=== PATIENT | female | born 1985 | race Caucasian/White ===

== ENCOUNTER 2017-05-29 08:21 | Emergency (ER) | payer MEDICAID | END 2017-05-29 09:49 | disposition home or self-care (01) | LOC: FTE 08:21 | DX: G51.0 Bell's palsy (principal) | CPT/HCPCS: 99284 ==

== ENCOUNTER 2018-08-27 19:48 | Inpatient (IN) | payer MEDICAID ==
[2018-08-27 21:40] LABS: ADD UMIC NO; UR ASCORBIC ACID NEGATIVE (NEGATIVE); UR BACTERIA FEW /HPF (NONE SEEN); UR BILIRUBIN (Dip) NEGATIVE (NEGATIVE); UR BLOOD (Dip) NEGATIVE (NEGATIVE); UR CALCIUM OXALATE CRYSTAL MANY /HPF (NONE SEEN); UR CLARITY SLIGHTLY CLOUDY (CLEAR); UR COLOR YELLOW (YELLOW); UR GLUCOSE (Dip) NEGATIVE (NEGATIVE); UR KETONES (Dip) NEGATIVE (NEGATIVE); UR LEUKOCYTE ESTERASE (Dip) NEGATIVE Leu/ul (NEGATIVE); UR MUCUS FEW /HPF (NONE SEEN); UR NITRITE (Dip) NEGATIVE (NEGATIVE); UR RBC 1 /HPF (0-5); UR SPECIFIC GRAVITY (Dip) 1.018 (1.003-1.030); UR SQUAMOUS EPITHELIAL CELL FEW /HPF (FEW); UR TOTAL PROTEIN (Dip) NEGATIVE (NEGATIVE); UR UROBILINOGEN (Dip) NEGATIVE (NEGATIVE); UR WBC 1 /HPF (0-5)
[2018-08-28] MEDS ORDERED: LIDOCAINE 1% (MPF) 30 ML INJ INJ
[2018-08-28] MEDS ORDERED: BUTORPHANOL 2 MG INJ IV
[2018-08-28] MEDS ORDERED: MINERAL OIL LIGHT 10 ML VIAL TOP
[2018-08-28 00:34] LABS: ADD MAN DIFF? NO
[2018-08-28] MEDS: LACTATED RINGER'S 1,000 ML IV ×2 (00:37→07:51)
[2018-08-28 00:43] LABS: BASOPHILS % 0.5 % (0.0-2.0); EOSINOPHILS # 0.1 10^3/ul (0.0-0.5); EOSINOPHILS % 0.6 % (0.0-7.0); HEMATOCRIT 43.3 % (37.0-47.0); HEMOGLOBIN 14.1 g/dl (12.0-16.0); LYMPHOCYTES # 3.2 10^3/ul (0.8-2.9); MEAN CORPUSCULAR HEMOGLOBIN 27.8 pg (29.0-33.0); MEAN CORPUSCULAR HGB CONC 32.6 g/dl (32.0-37.0); MEAN CORPUSCULAR VOLUME 85.4 fl (82.0-101.0); MONOCYTE # 0.6 10^3/ul (0.3-0.9); MONOCYTES % 7.5 % (0.0-11.0); NEUTROPHILS % 50.8 % (39.0-77.0); PLATELET COUNT 234 10^3/UL (140-415); RED BLOOD COUNT 5.07 10^6/ul (4.20-5.40); RED CELL DISTRIBUTION WIDTH 14.4 % (11.5-14.5)
[2018-08-28 00:43] LABS: WHITE BLOOD COUNT 7.9 10^3/ul (4.8-10.8)
[2018-08-28 00:58] LABS: GLUCOSE 91 mg/dl (70-220)
[2018-08-28 00:59] LABS: ALANINE AMINOTRANSFERASE 16 IU/L (13-69); ALBUMIN 3.4 g/dl (3.3-4.9); ALBUMIN/GLOBULIN RATIO 1.06; ALKALINE PHOSPHATASE 162 IU/L (42-121); ANION GAP 9 (5-13); ASPARTATE AMINO TRANSFERASE 19 IU/L (15-46); BILIRUBIN,INDIRECT 0.2 mg/dl (0-1.1); BILIRUBIN,TOTAL 0.2 mg/dl (0.2-1.3); BLOOD UREA NITROGEN 16 mg/dl (7-20); CALCIUM 9.3 mg/dl (8.4-10.2); CARBON DIOXIDE 21 mmol/L (21-31); CHLORIDE 106 mmol/L (97-110); CREATININE 0.49 mg/dl (0.44-1.00); Estimated GFR > 60 mL/min (>60); GLUCOSE 95 mg/dl (70-220); SODIUM 136 mmol/L (135-144); TOTAL PROTEIN 6.6 g/dl (6.1-8.1)
[2018-08-28 01:00] LABS: INR 0.96; PROTIME 12.9 Sec (11.9-14.9)
[2018-08-28 01:01] LABS: PARTIAL THROMBOPLASTIN TIME 26.3 Sec (23.0-35.0)
[2018-08-28 01:30] LABS: HEPATITIS B SURFACE ANTIGEN NEGATIVE (NEGATIVE)
[2018-08-28] MEDS: OXYTOCIN 30 UNITS/LR 500 ML IV ×4 (03:09→18:36)
[2018-08-28] MEDS ORDERED: LACTATED RINGER'S 1,000 ML IV* (12:28)
[2018-08-28] MEDS ORDERED: CARBOPROST 250 MCG INJ IM ×3 (12:30→19:00)
[2018-08-28] MEDS ORDERED: ONDANSETRON 4 MG INJ IV (12:30)
[2018-08-28] MEDS ORDERED: MAGNESIUM HYDROXIDE 30ML CUP PO (12:30)
[2018-08-28] MEDS ORDERED: MISOPROSTOL 200 MCG TAB PR ×3 (12:30→19:00)
[2018-08-28] MEDS ORDERED: DIBUCAINE 1% 30 GM OINT TOP ×2 (12:30→19:00)
[2018-08-28] MEDS ORDERED: SENNA/DOCUSATE NA (8.6MG/50MG) TAB PO (12:30)
[2018-08-28] MEDS ORDERED: OXYTOCIN 30 UNITS/LR 500 ML IV ×3 (12:30→19:00)
[2018-08-28] MEDS ORDERED: LANOLIN HPA 1 PKT TOP ×2 (12:30→19:00)
[2018-08-28] MEDS ORDERED: METHYLERGONOVINE 0.2 MG INJ IM ×2 (12:30→19:00)
[2018-08-28] MEDS ORDERED: ACETAMINOPHEN 325 MG TAB PO ×2 (12:30)
[2018-08-28] MEDS ORDERED: GLUCOSE GEL 15 GRAM TUBE BUCCAL (13:30)
[2018-08-28] MEDS ORDERED: DEXTROSE 50% 50 ML SYRINGE IV ×2 (13:30)
[2018-08-28] MEDS ORDERED: GLUCOSE GEL 15 GRAM TUBE PO ×2 (13:30)
[2018-08-28] MEDS ORDERED: GLUCAGON 1 MG INJ IM (13:30)
[2018-08-28] MEDS ORDERED: metFORMIN (XR) 500 MG TAB PO (14:00)
[2018-08-28] MEDS: METHYLERGONOVINE 0.2 MG INJ IM (14:28)
[2018-08-28] MEDS: IBUPROFEN 600 MG TAB PO (14:51)
[2018-08-28] MEDS: metFORMIN (XR) 500 MG TAB PO (18:32)
[2018-08-28] MEDS: BENZOCAINE 20% 56 ML SPRAY TOP (18:41)
[2018-08-28] MEDS: WITCH HAZEL/GLYCERIN PAD PR (18:41)
[2018-08-28] MEDS: LACTATED RINGER'S 1,000 ML IV* (18:47)
[2018-08-28] MEDS ORDERED: ZOLPIDEM 5 MG TAB PO (19:00)
[2018-08-28] MEDS ORDERED: HYDROCODONE/APAP (5/325) TAB PO (19:00)
[2018-08-28] MEDS ORDERED: WITCH HAZEL/GLYCERIN PAD PR (19:00)
[2018-08-28] MEDS ORDERED: BENZOCAINE 20% 56 ML SPRAY TOP (19:00)
[2018-08-28] MEDS: HYDROCODONE/APAP (5/325) TAB PO (19:19)
[2018-08-28] MEDS: ACCU-CHEK XX (20:05)
[2018-08-28] MEDS: MAGNESIUM HYDROXIDE 30ML CUP PO (21:00)
[2018-08-28] MEDS: SENNA/DOCUSATE NA (8.6MG/50MG) TAB PO (21:00)
[2018-08-28 21:49] LABS: RAPID PLASMA REAGIN NONREACTIVE (NR)
[2018-08-29] MEDS: IBUPROFEN 600 MG TAB PO ×5 (00:42→23:15)
[2018-08-29] MEDS: LACTATED RINGER'S 1,000 ML IV* ×2 (07:00→10:47)
[2018-08-29] MEDS: ACCU-CHEK XX ×3 (07:30→13:50)
[2018-08-29] MEDS: SENNA/DOCUSATE NA (8.6MG/50MG) TAB PO ×2 (08:35→21:20)
[2018-08-29 08:36] LABS: ADD MAN DIFF? NO
[2018-08-29] MEDS: MAGNESIUM HYDROXIDE 30ML CUP PO ×2 (08:36→21:20)
[2018-08-29 08:38] LABS: BASOPHILS % 0.3 % (0.0-2.0); EOSINOPHILS # 0.1 10^3/ul (0.0-0.5); HEMATOCRIT 36.4 % (37.0-47.0); LYMPHOCYTES # 2.2 10^3/ul (0.8-2.9); LYMPHOCYTES % 23.8 % (15.0-51.0); MEAN CORPUSCULAR HEMOGLOBIN 27.7 pg (29.0-33.0); MEAN CORPUSCULAR VOLUME 84.1 fl (82.0-101.0); MEAN PLATELET VOLUME 9.9 fl (7.4-10.4); MONOCYTE # 0.7 10^3/ul (0.3-0.9); MONOCYTES % 7.5 % (0.0-11.0); NEUTROPHIL # 6.1 10^3/ul (1.6-7.5); NEUTROPHILS % 66.3 % (39.0-77.0); PLATELET COUNT 181 10^3/UL (140-415); RED BLOOD COUNT 4.33 10^6/ul (4.20-5.40); RED CELL DISTRIBUTION WIDTH 14.5 % (11.5-14.5)
[2018-08-29 08:38] LABS: WHITE BLOOD COUNT 9.2 10^3/ul (4.8-10.8)
[2018-08-29] MEDS: metFORMIN (XR) 500 MG TAB PO ×2 (08:57→18:22)
[2018-08-29] MEDS ORDERED: KETOROLAC 30 MG INJ IV (19:11)
[2018-08-29] MEDS ORDERED: AZITHROMYCIN 500MG/NS (PMX) 250 ML IVPB (19:30)
[2018-08-30] MEDS: IBUPROFEN 600 MG TAB PO ×2 (05:20→11:59)
[2018-08-30] MEDS: SENNA/DOCUSATE NA (8.6MG/50MG) TAB PO (09:00)
[2018-08-30] MEDS: MEASLES,MUMPS,RUBELLA VACCINE INJ SC* (09:00)
[2018-08-30] MEDS: VARICELLA VACCINE LIVE/PF 1,350 UNIT/0.5 ML ML SC* (09:00)
[2018-08-30] MEDS: DIPHTH/TET/ACEL PERTUSS (ADULT) 0.5 ML VIAL IM* (09:00)
[2018-08-30] MEDS: MAGNESIUM HYDROXIDE 30ML CUP PO (09:30)
[2018-08-30] MEDS: metFORMIN (XR) 500 MG TAB PO (09:32)
== END 2018-08-30 17:15 | disposition home or self-care (01) | DRG 807 ==
LOC: OBT 19:48 → L-D 19:49 → OBT 23:40 → PP1 08-28 16:50 → L-D 23:40
PROC: 10E0XZZ Delivery of Products of Conception, External Approach (ICD-10-PCS; principal; 2018-08-28)
PROC: 0W8NXZZ Division of Female Perineum, External Approach (ICD-10-PCS; 2018-08-28)
DX: O24.425 Gestational diabetes mellitus in childbirth, controlled by oral hypoglycemic drugs (principal); Z37.0 Single live birth; Z3A.39 39 weeks gestation of pregnancy
CPT/HCPCS: 76815; 76818; 80053; 81001; 81003; 82947; 82962; 85025; 85610; 85730; 86592; 86850; 86900; 86901; 87340; 90716; 99464

== ENCOUNTER 2019-02-08 16:13 | Emergency (ER) | payer MEDICAID ==
[2019-02-08] MEDS: ACETAMINOPHEN 325 MG TAB PO (17:42)
[2019-02-08 17:49] LABS: ADD MAN DIFF? NO
[2019-02-08 17:51] LABS: BASOPHILS % 0.4 % (0.0-2.0); EOSINOPHILS # 0.2 10^3/ul (0.0-0.5); EOSINOPHILS % 1.9 % (0.0-7.0); HEMATOCRIT 43.5 % (37.0-47.0); LYMPHOCYTES # 3.8 10^3/ul (0.8-2.9); LYMPHOCYTES % 47.2 % (15.0-51.0); MEAN CORPUSCULAR HEMOGLOBIN 27.1 pg (29.0-33.0); MEAN CORPUSCULAR HGB CONC 32.2 g/dl (32.0-37.0); MEAN CORPUSCULAR VOLUME 84.3 fl (82.0-101.0); MEAN PLATELET VOLUME 9.9 fl (7.4-10.4); MONOCYTE # 0.7 10^3/ul (0.3-0.9); MONOCYTES % 8.7 % (0.0-11.0); NEUTROPHIL # 3.4 10^3/ul (1.6-7.5); NEUTROPHILS % 41.6 % (39.0-77.0); PLATELET COUNT 294 10^3/UL (140-415); RED BLOOD COUNT 5.16 10^6/ul (4.20-5.40); RED CELL DISTRIBUTION WIDTH 13.2 % (11.5-14.5)
[2019-02-08 17:51] LABS: WHITE BLOOD COUNT 8.1 10^3/ul (4.8-10.8)
[2019-02-08 18:14] LABS: ALANINE AMINOTRANSFERASE 52 IU/L (13-69); ALBUMIN 4.3 g/dl (3.3-4.9); ALKALINE PHOSPHATASE 79 IU/L (42-121); ANION GAP 7 (5-13); ASPARTATE AMINO TRANSFERASE 24 IU/L (15-46); BILIRUBIN,INDIRECT 0.4 mg/dl (0-1.1); BILIRUBIN,TOTAL 0.4 mg/dl (0.2-1.3); BLOOD UREA NITROGEN 20 mg/dl (7-20); CALCIUM 9.4 mg/dl (8.4-10.2); CARBON DIOXIDE 26 mmol/L (21-31); CHLORIDE 107 mmol/L (97-110); CREATININE 0.67 mg/dl (0.44-1.00); Estimated GFR > 60 mL/min (>60); GLUCOSE 102 mg/dl (70-220); POTASSIUM 4.2 mmol/L (3.5-5.1); SODIUM 140 mmol/L (135-144); TOTAL PROTEIN 7.6 g/dl (6.1-8.1)
[2019-02-08 18:19] LABS: MONOTEST Negative (NEG)
== END 2019-02-08 18:58 | disposition home or self-care (01) ==
LOC: FTE 16:13
DX: J02.9 Acute pharyngitis, unspecified (principal)
CPT/HCPCS: 80053; 85025; 86308; 87880; 99283